=== PATIENT | female | born 1950 | race Caucasian/White ===

== ENCOUNTER 2018-08-18 14:57 | Inpatient (IN) | payer BC, MEDICARE ==
[~2018-08-18] VITALS: Ht 154.9 cm; Wt 64.0 kg
[2018-08-18 15:55] LABS: BACTERIA,URINE FEW /HPF (0-FEW); BILIRUBIN,URINE SMALL (NEG); CLARITY,URINE HAZY; COLOR,URINE AMBER; GLUCOSE,URINE NEG (NEG); NITRITE,URINE NEG (NEG); RBC,URINE 0 /HPF (0-2); SQUAMOUS EPITHELIAL CELL,UR OCC /LPF; UROBILINOGEN,URINE 0.2 mg/dL (0.2 mg/dL); WBC,URINE 0 /HPF (0-4)
--- NOTE | 2018-08-18 15:56 | PHYS DOC ---
Past History Past Medical History: Diverticulitis, Other Past Surgical History: No Surgical History Smoking: Non-smoker Alcohol Use: None Drug Use: None Adult General Chief Complaint Chief Complaint: BACK PAIN - NO INJURY HPI HPI Patient is a 68-year-old female with a fever for the past 4-5 days. Yesterday an d 2 days ago she had some vomiting. No blood in the emesis. No significant abdominal pain, this is nothing like her previous episodes of diverticulitis. She's had some back pain, some generalized malaise and weakness. No chest pain or palpitations. She says that her temperature started in the 99's, it was 101 yesterday. Her last Tylenol was 4-6 hours ago. Nothing makes the symptoms worse. Better with ibuprofen and acetaminophen.[] Review of Systems Review of Systems Constitutional: Denies chills ominous see history of present illness[] Eyes: Denies change in visual acuity, redness, or eye pain [] HENT: Denies nasal congestion or sore throat [] Respiratory: Denies cough or shortness of breath [] Cardiovascular: No chest pain or palpitations[] GI: Denies abdominal pain, nausea, vomiting, bloody stools or diarrhea [] : Denies dysuria or hematuria [] Musculoskeletal: Denies joint pain , see history of present illness[] Integument: Denies rash or skin lesions [] Neurologic: Denies headache, focal weakness or sensory changes [] Endocrine: Denies polyuria or polydipsia [] All other systems were reviewed and found to be within normal limits, except as documented in this note. Allergies Allergies Allergies Coded Allergies Type Severity Reaction Last Updated Verified Opioids - Morphine Analogues Allergy Mild Unknown 08/18/18 Yes Physical Exam Physical Exam Constitutional: Well developed, well nourished, no acute distress, non-toxic appearance. [] HENT: Normocephalic, atraumatic, bilateral external ears normal, oropharynx moist, no oral exudates, nose normal. [] Eyes: PERRLA, EOMI, conjunctiva normal, no discharge. [] Neck: Normal range of motion, no tenderness, supple, no stridor. [] Cardiovascular:Heart rate regular rhythm, no murmur [] Lungs & Thorax: Bilateral breath sounds clear to auscultation [] Abdomen: Bowel sounds normal, soft, no tenderness, no masses, no pulsatile masses. [] Skin: Warm, dry, no erythema, no rash. [] Back: No tenderness, no CVA tenderness. [] Extremities: No tenderness, no cyanosis, no clubbing, ROM intact, no edema. [] Neurologic: Alert and oriented X 3, normal motor function, normal sensory function, no focal deficits noted. [] Psychologic: Affect normal, judgement normal, mood normal. [] Current Patient Data Vital Signs Vital Signs Date Time Temp Pulse Resp B/P (MAP) Pulse Ox O2 Delivery O2 Flow Rate FiO2 08/18/18 15:36 98.4 84 20 95 Room Air EKG EKG [] Radiology/Procedures Radiology/Procedures PROCEDURE: CT ABDOMEN PELVIS WO CONTRAST EXAM: CT Abdomen and Pelvis without IV contrast CLINICAL HISTORY: Pain, fevers. COMPARISON: none TECHNIQUE: Helical CT of the abdomen and pelvis without intravenous contrast. Axial, coronal and sagittal reformatted images were generated. PQRS compliance statement - One or more of the following individualized dose reduction techniques were utilized for this study: 1. Automated exposure control 2. Adjustment of the mA and/or kV according to patient size 3. Use of iterative reconstruction technique FINDINGS: Lack of intravenous contrast limits evaluation of solid organs, vasculature, and lymph nodes. Lower chest: Calcified granuloma left lower lobe. Linear opacities in the lower lobes and lingula likely scarring/atelectasis. Abdomen and Pelvis: No focal liver lesion. Gallbladder is normal. No biliary ductal dilatation. Pancreas is unremarkable. Spleen is normal in appearance. Adrenal glands are unremarkable. No renal tract calculus. No focal renal lesion. No hydronephrosis. Mild fat infiltration seen about the bladder. Moderate colonic stool content is seen. There is fat infiltration about the sigmoid colon in the region of several diverticula. The space caudally of acute diverticulitis. Alternatively infectious/inflammatory colitis may have similar appearance. Appendix is not definitively seen. Small fat-containing periumbilical hernia. Aorta is normal in caliber. No abdominal or pelvic lymphadenopathy by size which area. Small fat-containing right inguinal hernia. Bones: Symphysis uterus degenerative changes are seen. No definite aggressive osseous lesion is seen. IMPRESSION: 1. Fat infiltration about the sigmoid colon in the region of several diverticula are most consistent with acute diverticulitis. Alternatively infectious or inflammatory colitis may result in similar appearance. No definite free or loculated fluid collection is seen in this region. 2. Small fat-containing right inguinal hernia is seen. PROCEDURE: CHEST PA & LATERAL EXAM: CHEST 2 VIEWS. HISTORY: Fever. COMPARISON: None. FINDINGS: Frontal and lateral views of the chest are obtained. Mild linear opacities in the left base may indicate atelectasis or mild infiltrate. There is no pneumothorax or pleural effusion. The heart is not enlarged. IMPRESSION: 1. Left basilar atelectasis or mild infiltrate.[] Course & Med Decision Making Course & Med Decision Making Pertinent Labs and Imaging studies reviewed. (See chart for details) ED course: Patient arrived, was placed in bed, and tolerated exam well. She was transported to and from radiology and CT without any complications. After the return of the laboratory and imaging findings, these were discussed with the patient and family who voiced understanding. All questions were answered. Consultation was made with the hospitalist here at [facility]. They graciously accepted the patient for admission. She was started on IV antibiotics. She was admitted in improved condition. Medical decision making: Patient with nausea and vomiting along with a fever for the past several days. She is been afebrile while in the emergency department. Her vital signs remained stable. Chest x-ray said possible left sided infiltrate however this was not appreciated on the CT scan. There was however evidence of diverticulitis on the CT scan so antibiotics were started for this. There is no evidence of a significant electrolyte abnormality. No evidence of this being an acute coronary syndrome with her weakness sensation. No evidence of a urinary tract infection is a trigger for this nor kidney stone.[] Dragon Disclaimer Dragon Disclaimer This electronic medical record was generated, in whole or in part, using a voice recognition dictation system. Departure Departure: Impression: Primary Impression: Acute febrile illness Additional Impressions: Nausea and vomiting Diverticulitis Disposition: ADMITTED INPATIENT Admitting Physician: Rei George Condition: IMPROVED Referrals: JACKIE ARAMBULA MD (PCP) Problem Qualifiers Additional Impressions: Nausea and vomiting Vomiting type: unspecified Vomiting Intractability: non-intractable Qualified Codes: R11.2 - Nausea with vomiting, unspecified LOU MARQUEZ DO Aug 18, 2018 15:56
[2018-08-18] MEDS ORDERED: IV NORMAL SALINE 1,000ML 1,000 ML IV ONE (16:00)
--- NOTE | 2018-08-18 16:28 | RAD ---
EXAM: CHEST 2 VIEWS. HISTORY: Fever. COMPARISON: None. FINDINGS: Frontal and lateral views of the chest are obtained. Mild linear opacities in the left base may indicate atelectasis or mild infiltrate. There is no pneumothorax or pleural effusion. The heart is not enlarged. IMPRESSION: 1. Left basilar atelectasis or mild infiltrate. Electronically signed by: Jam Beard MD (08/18/2018 4:25 PM) [facility]
[2018-08-18 16:40] LABS: BASO % 1 % (0-3); EOS % 0 % (0-3); HEMATOCRIT 39.5 % (36.0-47.0); HEMOGLOBIN 13.1 g/dL (12.0-15.5); LYMPH % 15 % (24-48); MEAN CORPUSCULAR HEMOGLOBIN 30 pg (25-35); MEAN CORPUSCULAR HGB CONC 33 g/dL (31-37); MEAN CORPUSCULAR VOLUME 91 fL (79-100); MONO # 0.4 x10^3/uL (0.0-1.1); MONO % 7 % (0-9); NEUT # 4.9 x10^3uL (1.8-7.7); NEUT % 77 % (31-73); PLATELET COUNT 257 x10^3/uL (140-400); RED BLOOD COUNT 4.35 x10^6/uL (3.50-5.40); RED CELL DISTRIBUTION WIDTH 14.1 % (11.5-14.5); WHITE BLOOD COUNT 6.3 x10^3/uL (4.0-11.0)
[2018-08-18 16:52] LABS: ALBUMIN/GLOBULIN RATIO 0.7 (1.0-1.7); CALCIUM 8.3 mg/dL (8.5-10.1); CREATININE 0.7 mg/dL (0.6-1.0); GFR 83.7; MAGNESIUM 1.8 mg/dL (1.8-2.4); TOTAL BILIRUBIN 0.2 mg/dL (0.2-1.0); TOTAL PROTEIN 7.3 g/dL (6.4-8.2)
--- NOTE | 2018-08-18 16:59 | RAD ---
EXAM: CT Abdomen and Pelvis without IV contrast CLINICAL HISTORY: Pain, fevers. COMPARISON: none TECHNIQUE: Helical CT of the abdomen and pelvis without intravenous contrast. Axial, coronal and sagittal reformatted images were generated. PQRS compliance statement - One or more of the following individualized dose reduction techniques were utilized for this study: 1. Automated exposure control 2. Adjustment of the mA and/or kV according to patient size 3. Use of iterative reconstruction technique FINDINGS: Lack of intravenous contrast limits evaluation of solid organs, vasculature, and lymph nodes. Lower chest: Calcified granuloma left lower lobe. Linear opacities in the lower lobes and lingula likely scarring/atelectasis. Abdomen and Pelvis: No focal liver lesion. Gallbladder is normal. No biliary ductal dilatation. Pancreas is unremarkable. Spleen is normal in appearance. Adrenal glands are unremarkable. No renal tract calculus. No focal renal lesion. No hydronephrosis. Mild fat infiltration seen about the bladder. Moderate colonic stool content is seen. There is fat infiltration about the sigmoid colon in the region of several diverticula. The space caudally of acute diverticulitis. Alternatively infectious/inflammatory colitis may have similar appearance. Appendix is not definitively seen. Small fat-containing periumbilical hernia. Aorta is normal in caliber. No abdominal or pelvic lymphadenopathy by size which area. Small fat-containing right inguinal hernia. Bones: Symphysis uterus degenerative changes are seen. No definite aggressive osseous lesion is seen. IMPRESSION: 1. Fat infiltration about the sigmoid colon in the region of several diverticula are most consistent with acute diverticulitis. Alternatively infectious or inflammatory colitis may result in similar appearance. No definite free or loculated fluid collection is seen in this region. 2. Small fat-containing right inguinal hernia is seen. Electronically signed by: Nicholas Chavira MD (08/18/2018 4:57 PM) [place] [id number]
[2018-08-18] MEDS ORDERED: ACETAMINOPHEN 325 MG TABLET PO PRN (17:30)
[2018-08-18] MEDS ORDERED: ONDANSETRON PF 4 MG/2 ML VIAL. IV PRN (17:30)
--- NOTE | 2018-08-18 18:07 | EKG ---
[address] [address] Test Date: 2018-08-18 Test Time: 16:34:04 Pat Name: TANK CHRIS Department: Room: Gender: F [employer] Builder: : 1950 Requested By: LOU MARQUEZ Order Number: [id number] Reading MD: Measurements Intervals [place] Rate: 77 P: -22 ME: 140 QRS: -36 QRSD: 70 T: 24 QT: 352 QTc: 400 Interpretive Statements SINUS RHYTHM ABNORMAL LEFT AXIS DEVIATION QRS(T) CONTOUR ABNORMALITY CONSIDER ANTEROSEPTAL MYOCARDIAL DAMAGE CONSISTENT WITH INFERIOR INFARCT PROBABLY OLD ABNORMAL ECG RI6.01 No previous ECG available for comparison
[2018-08-18 18:52] VITALS: BP 121/62
[2018-08-18] MEDS ORDERED: ALPR0.254 PO (20:07)
[2018-08-18] MEDS ORDERED: NYST15CR TP (20:07)
[2018-08-18] MEDS ORDERED: CLOB15CR TP (20:07)
[2018-08-18 20:48] VITALS: BP 125/59
[2018-08-18] MEDS: ACETAMINOPHEN 500 MG TABLET PO PRN (21:13)
--- NOTE | 2018-08-18 22:16 | HP ---
ADMIT DATE: 08/18/2018 ATTENDING PHYSICIAN: ABHINAV ALCANTARA MD CHIEF COMPLAINT: Fevers and abdominal pain. HISTORY OF PRESENT ILLNESS: The patient is a very pleasant active 68-year-old female who had a 4-day history of low-grade fevers up to 101 degrees. She has had vague nonspecific abdominal pain and back pain and as part of the workup, she had a CT scan of the abdomen. She has had 2 or 3 episodes of diverticulitis in the past. Interestingly, in the past week, she has eaten quite a bit of strawberries as well as popcorn, which may contribute to her symptoms. In the ED, she had a CT of the abdomen and pelvis without contrast. There is no renal calculus. There are no focal liver lesions. The gallbladder was normal. The ducts are patent. Pancreas is unremarkable. Spleen is normal. She did have moderate colonic stool content in the sigmoid colon. There were several regions of diverticula. The space caudally shows acute diverticulitis. Fat containing periumbilical hernia. Aorta is otherwise normal. The interpretation if she has perisigmoid colon stranding of fat consistent with acute diverticulitis. She was started on antibiotics, kept n.p.o. and sent here for inpatient admission. I recommended Levaquin and metronidazole. The patient is a nonsmoker and nondrinker. PAST MEDICAL HISTORY: Significant for 2-3 episodes of diverticulitis in the past requiring hospitalization. She also has generalized anxiety. There is no history of hypertension or diabetes. FAMILY HISTORY: Quite interesting. Her mother at age 73, complications of heart disease and diabetes. Father of colon cancer and lymphoma. One brother age 34 of non-Hodgkin's lymphoma. One sister of Pick's disease. MEDICATIONS: Her current medicines are reviewed. She takes only p.r.n. Xanax. ALLERGIES: SHE HAS ALLERGIES TO MORPHINE CAUSING NAUSEA, EXACT ETIOLOGY IS UNCLEAR. REVIEW OF SYSTEMS: Significant for the localized abdominal symptoms and low-grade fever. She denied any nausea, vomiting, diarrhea or hematemesis. She denied chest pain or palpitation. All other systems reviewed and determined to be negative. PHYSICAL EXAMINATION: I saw her. GENERAL: This is very alert, pleasant, middle-aged female. VITAL SIGNS: Initial vital signs in the ED showed a blood pressure of 131/88, pulse is 88 regular, she was afebrile and temperature 99.1 orally. HEENT: Without trauma. Pupils are reactive. Sclerae is nonicteric. Oropharynx is clear. NECK: Supple. No bruits identified. LUNGS: Otherwise clear. CARDIOVASCULAR: Irregular heart tones. No obvious gallops. Peripheral pulses are palpable. ABDOMEN: Soft, scaphoid, nontender to palpation. Bowel sounds were hypoactive. There is no guarding or rebound tenderness. No masses palpated. EXTREMITIES: Show no cyanosis or edema. NEUROLOGIC: Focally intact. Speech is fluent. PERTINENT LABORATORY STUDIES: Her admission hemoglobin was 13.1 g/dL with white count of 6300. Chemistry panel showed a creatinine of 0.7, sodium 137 and electrolytes and bilirubin within range. ASSESSMENT: 1. A 68-year-old female with acute diverticulitis of the sigmoid colon. 2. Localized abdominal pain. 3. Abdominal pain localized. PLAN: 1. Admit to the inpatient unit. 2. Gentle IV hydration. 3. Empiric antibiotics has been started. 4. Pain control. 5. Clear liquid diet. ABHINAV ALCANTARA MD DR: RUSSELL/alexander JOB#: [id number] / [id number] JACKIE Adams MD, AHMED MD
[2018-08-19] VITALS (7 sets, daily range): BP systolic 111–149; BP diastolic 56–102
[2018-08-19] MEDS: IV NORMAL SALINE 1,000ML 1,000 ML IV SCH ×4 (01:20→13:22)
[2018-08-19] MEDS: ALPRAZolam 0.25 MG TABLET PO PRN ×2 (04:01→21:28)
[2018-08-19] MEDS: ACETAMINOPHEN 500 MG TABLET PO PRN ×2 (04:11→13:21)
[2018-08-19 06:25] LABS: ALBUMIN 2.4 g/dL (3.4-5.0); ALBUMIN/GLOBULIN RATIO 0.7 (1.0-1.7); CALCIUM 7.5 mg/dL (8.5-10.1); CREATININE 0.6 mg/dL (0.6-1.0); POTASSIUM 3.4 mmol/L (3.5-5.1); TOTAL BILIRUBIN 0.2 mg/dL (0.2-1.0)
[2018-08-19 06:49] LABS: BASO % 0 % (0-3); EOS % 0 % (0-3); HEMATOCRIT 35.3 % (36.0-47.0); HEMOGLOBIN 11.8 g/dL (12.0-15.5); LYMPH # 0.9 x10^3/uL (1.0-4.8); LYMPH % 18 % (24-48); MEAN CORPUSCULAR HEMOGLOBIN 30 pg (25-35); MEAN CORPUSCULAR HGB CONC 33 g/dL (31-37); MEAN CORPUSCULAR VOLUME 90 fL (79-100); MONO # 0.3 x10^3/uL (0.0-1.1); MONO % 7 % (0-9); NEUT # 3.9 x10^3uL (1.8-7.7); NEUT % 75 % (31-73); PLATELET COUNT 224 x10^3/uL (140-400); RED BLOOD COUNT 3.93 x10^6/uL (3.50-5.40); RED CELL DISTRIBUTION WIDTH 13.8 % (11.5-14.5); WHITE BLOOD COUNT 5.1 x10^3/uL (4.0-11.0)
[2018-08-19] MEDS ORDERED: POTASSIUM CHLORIDE 20 MEQ TABLET.ER. PO ONE (07:30)
[2018-08-19] MEDS: KETOROLAC 30 MG/ML VIAL. IV PRN ×2 (09:04→15:12)
--- NOTE | 2018-08-19 14:16 | RAD ---
CT LUMBAR SPINE WO CONTRAST, CT THORACIC SPINE WO CONTRAST Indication: Severe back pain with radiation to both lower extremities. Exposure: One or more of the following individualized dose reduction techniques were utilized for this examination: 1. Automated exposure control 2. Adjustment of the mA and/or kV according to patient size 3. Use of iterative reconstruction technique. Technique: Standard imaging without intravenous contrast. Thoracic spine: Vertebral body height and alignment are intact. There is degenerative spondylosis with marginal spurring. No aggressive bone destruction. Lungs are partially included. Several tiny pulmonary nodules are seen measuring 2 mm or less. There is a partially visualized calcified nodule in the left lung base measuring 1 cm compatible with a large granuloma. Trachea and mainstem bronchi are patent. Ascending aorta measures 3.5 cm diameter. IMPRESSION: 1. Mild degenerative spondylosis. 2. No evidence of acute fracture or subluxation. 3. Very small pulmonary nodules, questionable significance. Consider follow-up CT chest in 12 months if patient is high risk. If patient is low risk, no follow-up is necessary, as per revised Fleischner guidelines. 4. Outpatient MR could be helpful for further evaluation of back pain. Lumbar spine: Vertebral body height and alignment are intact. Mild degenerative changes of the lower facet joints. No evidence of acute fracture. No aggressive bone destruction. No evidence of high-grade central stenosis. Partially visualized sigmoid colon demonstrates wall thickening with stranding, compatible with colitis, more fully evaluated on CT abdomen of the previous day. Mild degenerative changes at the sacroiliac joints. IMPRESSION: 1. Mild degenerative change 2. No evidence of acute fracture or subluxation 3. Limited sigmoid colon visualization compatible with colitis, refer to report from CT abdomen pelvis study of the previous day. 4. Outpatient MR could be helpful for further evaluation of back pain. Electronically signed by: Danny Gonzalez MD (08/19/2018 2:13 PM) [id number]
[2018-08-19] MEDS ORDERED: MELATONIN 3 MG TABLET PO PRN (18:45)
[2018-08-19] MEDS: ONDANSETRON PF 4 MG/2 ML VIAL. IV PRN (19:47)
[2018-08-19] MEDS: LACTOBACILLUS RHAMNOSUS GG 1 CAPSULE. PO SCH (20:07)
[2018-08-19] MEDS ORDERED: HYDROmorphone PF 2 MG/ML VIAL IV PRN (21:45)
[2018-08-19] MEDS: HYDROmorphone PF 1 MG/ML DISP.SYRIN IV PRN (22:10)
--- NOTE | 2018-08-19 23:46 | PN ---
DATE: 08/19/2018 SUBJECTIVE: The patient is resting slightly propped up in bed, in no apparent respiratory distress. She is complaining of severe back pain, mostly in the lower thoracic and upper lumbar radiating down to both lower extremities with marked pain and tenderness in her both thighs. Denied any loss of bowel or bladder control. The pain is made worse by attempting to sit up. She does have an area of numbness in the upper outer aspect of left thigh consistent with meralgia paresthetica; however, she has actually no abdominal pain, which is inconsistent with what she normally experiences when she has diverticulitis according to her. Her CT scan showed that she has fatty infiltration about the sigmoid colon in the region of several diverticula are most consistent with acute diverticulitis. Alternatively infectious inflammatory colitis may result in similar appearance. No definite free or loculated fluid collection is seen in this region. She has a small fat containing right inguinal hernia seen. PHYSICAL EXAMINATION: GENERAL: When I examined her this afternoon, she looked well and was clearly in no apparent respiratory distress, slightly pale, but no jaundice, cyanosis, or thyromegaly. No jugular venous distension. No lower limb edema. VITAL SIGNS: Her heart rate was 73, blood pressure was 134/102, temperature was 97.4, respiratory rate was 20, and oxygen saturation was 95%. HEAD, EYES, EARS, NOSE AND THROAT: Showed normocephalic, atraumatic. NECK: Supple. HEART: Showed normal first and second heart sounds. No gallop, rub or murmur. CHEST: Clear to auscultation. No crepitation or rhonchi. ABDOMEN: Distended, soft, and nontender. There is definitely no tenderness in the left lower quadrant the usual place where she complains of pain whenever she has diverticulitis. There is no guarding or rigidity. No organomegaly. All hernial orifices intact. Bowel sounds normal. NEUROLOGIC: She is awake, alert, responding appropriately. All cranial nerves intact. She moves all extremities without difficulty. She does have an area of tingling and numbness in the outer upper aspect of left thigh. External rotation of both hip joints elicits severe pain, although she has no other sensory losses or weakness and she is able to move her feet, dorsiflexion and plantar flexion without difficulty; however, flexion of her hip elicits also severe pain. Her intake over the last 24 hours was 1900, output was 1100. Her lab work this morning showed a white cell count 5100, hemoglobin 11.8, hematocrit 35, MCV 90 and platelet count 224,000 with normal manual differential. Her chemistry showed a serum sodium 138, potassium 3.4, chloride 102, bicarbonate 26, anion gap of 10, BUN 7, creatinine 0.6, estimated GFR was 100 mL per minute. Her glucose was 90, calcium was 7.5. Total bilirubin, AST, ALT, alkaline phosphatase were normal. Total protein was 6, albumin was 2.4. Urinalysis showed the urine was andres, hazy with a pH of 5, specific gravity of 1.025. There is a trace of protein. The urine was negative for glucose. There was a large amount of ketones, small amount of blood, negative for nitrites, negative for leukocyte esterase; there are no rbc's, no wbc's and very few bacteria. ASSESSMENT: Back pain, raising the possibility of either a compression fracture, prolapsed disk and/or diskitis, especially in the setting of back pain and fever. PLAN: My plan is to continue with IV antibiotic for now. I will arrange for her to have a CT scan of the thoracic and lumbar spine and dependent on the finding, if there is any evidence of aggressive destructive lesion or compression fracture, we might have to transfer her to [facility]. GARRETT ROSS MD DR: KWAN/alexander JOB#: [id number] / [id number]
[2018-08-20] MEDS: ONDANSETRON PF 4 MG/2 ML VIAL. IV PRN ×2 (01:47→08:10)
[2018-08-20 01:56] VITALS: BP 114/65
[2018-08-20] MEDS: HYDROmorphone PF 1 MG/ML DISP.SYRIN IV PRN ×3 (02:08→08:10)
[2018-08-20] MEDS: ACETAMINOPHEN 500 MG TABLET PO PRN (05:25)
[2018-08-20 05:30] VITALS: BP 101/54
[2018-08-20 06:29] LABS: HEMATOCRIT 38.3 % (36.0-47.0); HEMOGLOBIN 12.7 g/dL (12.0-15.5); RED BLOOD COUNT 4.25 x10^6/uL (3.50-5.40); RED CELL DISTRIBUTION WIDTH 13.7 % (11.5-14.5); WHITE BLOOD COUNT 6.9 x10^3/uL (4.0-11.0)
[2018-08-20 06:35] LABS: CREATININE 0.5 mg/dL (0.6-1.0); GFR 123.4; POTASSIUM 4.1 mmol/L (3.5-5.1)
[2018-08-20] MEDS: LACTOBACILLUS RHAMNOSUS GG 1 CAPSULE. PO SCH (08:19)
[2018-08-20] MEDS ORDERED: METOCLOPRAMIDE HCL 10 MG/2 ML VIAL. IV PRN (08:45)
== END 2018-08-20 10:30 | disposition short-term general hospital (02) | DRG 391 ==
LOC: ER 14:57 → ICU 18:34
PROVIDERS: ADMIT Hospitalist; ATTEND Hospitalist
DX: K57.32 Diverticulitis of large intestine without perforation or abscess without bleeding (principal); J96.01 Acute respiratory failure with hypoxia; J98.11 Atelectasis; F41.1 Generalized anxiety disorder; G57.10 Meralgia paresthetica, unspecified lower limb; M54.9 Dorsalgia, unspecified; K40.90 Unilateral inguinal hernia, without obstruction or gangrene, not specified as recurrent; Z80.0 Family history of malignant neoplasm of digestive organs; Z80.7 Family history of other malignant neoplasms of lymphoid, hematopoietic and related tissues; Z83.3 Family history of diabetes mellitus; Z88.5 Allergy status to narcotic agent; Z88.8 Allergy status to other drugs, medicaments and biological substances
CPT/HCPCS: 36415; 71046; 72128; 72131; 74176; 80048; 80053; 81001; 83605; 83735; 84484; 85025; 85027; 85610; 85651; 86140; 87040; 87641; 93005; 96361; 96365; 96368; J1170; J1885; J1956; J2405; J2765; J3010; J3490; 99285-25; J7030